=== PATIENT | female | born 1985 | race American Indian/Alaskan Native ===

== ENCOUNTER 2017-01-12 11:43 | Emergency (ER) | payer MEDICAID ==
[2017-01-12 12:03] VITALS: BP 114/56
[2017-01-12 12:51] LABS: Basophils % (Auto) 0.5 % (0.0-1.8); Eosinophils % (Auto) 0.6 % (0.0-4.3); Hematocrit 31.3 % (30.3-42.9); Hemoglobin 9.5 gm/dl (10.1-14.3); Mean Corpuscular HGB Conc 30 % (30-34); Mean Corpuscular Volume 73 fl (79-97); Platelet Count 254 K/mm3 (140-440); Red Blood Count 4.29 M/mm3 (3.65-5.03); Red Cell Distribution Width 16.5 % (13.2-15.2); White Blood Count 4.4 K/mm3 (4.5-11.0)
[2017-01-12 12:54] LABS: Mean Corpuscular Hemoglobin 22 pg (28-32)
[2017-01-12 13:02] LABS: Alanine Aminotransferase 8 units/L (7-56); Albumin 4.1 g/dL (3.9-5); Albumin/Globulin Ratio 1.2 %; Alkaline Phosphatase 51 units/L (35-129); Anion Gap 16 mmol/L; BUN/Creatinine Ratio 14; Blood Urea Nitrogen 7 mg/dL (7-17); Calcium 9.1 mg/dL (8.4-10.2); Carbon Dioxide 24 mmol/L (22-30); Chloride 102.9 mmol/L (98-107); Glucose 102 mg/dL (65-100); Lipase 22 units/L (13-60); Potassium 3.9 mmol/L (3.6-5.0); Sodium 139 mmol/L (137-145); Total Protein 7.5 g/dL (6.3-8.2)
[2017-01-12 13:14] LABS: Bilirubin,Urine NEG (Negative); Blood,Urine NEG (Negative); Ketones,Urine NEG (Negative); Leukocyte Esterase,Urine NEG (Negative); Mucus,Urine 1+ /HPF; Nitrite,Urine NEG (Negative); Urobilinogen,Urine < 2.0 mg/dL (<2.0)
== END 2017-01-12 14:55 | disposition left against medical advice (07) ==
LOC: ED 11:43
DX: R10.9 Unspecified abdominal pain (principal); Z53.21 Procedure and treatment not carried out due to patient leaving prior to being seen by health care provider
CPT/HCPCS: 36415; 80053; 81001; 81025; 83690; 85025

== ENCOUNTER 2018-09-16 11:44 | Emergency (ER) | payer MEDICAID ==
--- NOTE | 2018-09-16 12:07 | Event Note ---
ED Screening Note ED Screening Note: pt is c/o POWERS for three days has a hx of migraines, states she use to take propranol and amtriptyline states she stopped taking it a year ago because she went to snf +phophobia +nausea LNMP: 09/15/18 This initial assessment/diagnostic orders/clinical plan/treatment(s) is/are subject to change based on patients health status, clinical progression and re- assessment by fellow clinical providers in the ED. Further treatment and workup at subsequent clinical providers discretion. Patient/guardian urged not to elope from the ED as their condition may be serious if not clinically assessed and managed.
[2018-09-16] MEDS ORDERED: TORADOL IM ONE (13:22)
--- NOTE | 2018-09-16 13:53 | Emergency Department Report ---
ED Headache HPI - General Chief Complaint: Headache Stated Complaint: CHEST PAIN/MIGRAINE Time Seen by Provider: 09/16/18 12:05 Source: patient - History of Present Illness Timing/Duration: 1 week Quality: moderate Head Injury Location: global Recent Head Trauma: frequent headaches Modifying Factors: improves with: other (she has a history of taking several medications which usually does make her sleepy. Patient is been off of these medications for some time secondary to not having a primary care physician.) Associated Symptoms: other (light sensitivity). denies: confusion, fatigue, facial pain, fever/chills, loss of consciousness, nausea/vomiting, nasal congestion, nasal drainage, numbness in legs/feet, seizures, sinus infection, stiff neck Allergies/Adverse Reactions: Allergies No Known Allergies Allergy (Unverified 01/12/17 12:03) Home Medications: Ambulatory Orders Butalb/Acetamin/Caff 50-325-40 [Fioricet 50-325-40] 1 tab PO Q8HR PRN #10 tablet 09/16/18 Ketorolac [Toradol] 10 mg PO Q6H PRN #12 tablet 09/16/18 ED Review of Systems ROS: Stated complaint: CHEST PAIN/MIGRAINE Other details as noted in HPI Comment: All other systems reviewed and negative ED Past Medical Hx - Past Medical History Previous Medical History?: Yes Hx Headaches / Migraines: Yes - Surgical History Past Surgical History?: Yes Additional Surgical History: ,tubal - Social History Smoking Status: Never Smoker Substance Use Type: None - Medications Home Medications: Home Medications Medication Instructions Recorded Confirmed Last Taken Type Butalb/Acetamin/Caff 50-325-40 1 tab PO Q8HR PRN #10 tablet 09/16/18 Unknown Rx [Fioricet 50-325-40] Ketorolac [Toradol] 10 mg PO Q6H PRN #12 tablet 09/16/18 Unknown Rx ED Physical Exam - General Limitations: No Limitations General appearance: alert, in no apparent distress - Head Head exam: Present: atraumatic, normocephalic - Eye Eye exam: Present: normal appearance, PERRL, EOMI - ENT ENT exam: Present: mucous membranes moist - Neck Neck exam: Present: normal inspection - Respiratory Respiratory exam: Present: normal lung sounds bilaterally. Absent: respiratory distress - Cardiovascular Cardiovascular Exam: Present: regular rate, normal rhythm. Absent: systolic murmur, diastolic murmur, rubs, gallop - GI/Abdominal GI/Abdominal exam: Present: soft, normal bowel sounds - Extremities Exam Extremities exam: Present: normal inspection - Back Exam Back exam: Present: normal inspection - Neurological Exam Neurological exam: Present: alert, oriented X3 - Psychiatric Psychiatric exam: Present: normal affect, normal mood - Skin Skin exam: Present: warm, dry, intact, normal color. Absent: rash ED Course Vital Signs 09/16/18 12:05 Temperature 97.9 F Pulse Rate 71 Respiratory 16 Rate Blood Pressure 140/85 [Left] O2 Sat by Pulse 100 Oximetry ED Medical Decision Making - Medical Decision Making Patient given a shot of Toradol for pain control the patient be discharged home. Critical care attestation.: If time is entered above; I have spent that time in minutes in the direct care of this critically ill patient, excluding procedure time. ED Disposition Clinical Impression: Migraine Qualifiers: Migraine type: unspecified Status migrainosus presence: without status migrainosus Intractability: not intractable Qualified Code(s): G43.909 - Migraine, unspecified, not intractable, without status migrainosus Disposition: DC-01 TO HOME OR SELFCARE Is pt being admited?: No Does the pt Need Aspirin: No Condition: Stable Instructions: Migraine Headache (ED) Referrals: KATI SHEN MD [Primary Care Provider] - 3-5 Days Time of Disposition: 13:53
[2018-09-16 14:20] VITALS: BP 122/70
== END 2018-09-16 14:10 | disposition home or self-care (01) ==
LOC: ED 11:44
DX: G43.909 Migraine, unspecified, not intractable, without status migrainosus (principal)
CPT/HCPCS: 96372; 99282; J1885

== ENCOUNTER 2018-11-15 15:24 | Emergency (ER) | payer MEDICAID ==
[2018-11-15 15:56] VITALS: BP 117/52
--- NOTE | 2018-11-15 16:26 | Event Note ---
ED Screening Note Date of service: 11/15/18 Time: 16:20 ED Screening Note: 33 y/o female comes in for headache times 1.5 weeks and 3 days of hand and feet swelling. History of migraines This initial assessment/diagnostic orders/clinical plan/treatment(s) is/are subject to change based on patients health status, clinical progression and re- assessment by fellow clinical providers in the ED. Further treatment and workup at subsequent clinical providers discretion. Patient/guardian urged not to elope from the ED as their condition may be serious if not clinically assessed and managed. Initial orders include:
[2018-11-15] MEDS ORDERED: TORADOL IV ONE (17:07)
[2018-11-15] MEDS ORDERED: NACL 0.9% 1000 ML 1,000 ML IV ONE (17:07)
--- NOTE | 2018-11-15 17:07 | Emergency Department Report ---
HPI - General Chief Complaint: Headache Time Seen by Provider: 11/15/18 16:09 ED Past Medical Hx - Past Medical History Hx Headaches / Migraines: Yes - Surgical History Past Surgical History?: Yes Additional Surgical History: ,tubal - Family History Family history: no significant - Social History Smoking Status: Never Smoker Substance Use Type: None - Medications Home Medications: Home Medications Medication Instructions Recorded Confirmed Last Taken Type Butalb/Acetamin/Caff 50-325-40 1 tab PO Q8HR PRN #10 tablet 09/16/18 Unknown Rx [Fioricet 50-325-40] Ketorolac [Toradol] 10 mg PO Q6H PRN #12 tablet 09/16/18 Unknown Rx ED Review of Systems ROS: Stated complaint: BI HAND/FEET SWELLING/HEADACHE Other details as noted in HPI Comment: All other systems reviewed and negative Physical Exam - Physical Exam Vital Signs: Vital Signs 11/15/18 11/15/18 15:54 17:01 Temperature 98.3 F Pulse Rate 83 Respiratory 18 16 Rate Blood Pressure 117/52 O2 Sat by Pulse 99 Oximetry Physical Exam: ALERT AND ORIENTED NO FOCAL DEFICIT AMBULATORY NO VOMITING SEES HER NEURO MD IN ONE WEEK S1S2 LUNGS CTA ABD SNT ED Course Vital Signs 11/15/18 11/15/18 15:54 17:01 Temperature 98.3 F Pulse Rate 83 Respiratory 18 16 Rate Blood Pressure 117/52 O2 Sat by Pulse 99 Oximetry ED Medical Decision Making - Medical Decision Making PT HAS HX OF MIGRAIENE THIS IS HER USUAL HEADACHE SHE JUST CAN NOT BREAK IT WITH HER MEDS NO HEAD TRAUMA POS NAUSEA NEURO INTACT VSS HAS APPNT NEXT WED WITH HER MD LO/TORADOL/ZOFRAN/FIORICET IN ER DC HOME WITH NEURO FOLLOW UP Vital Signs 11/15/18 11/15/18 15:54 17:01 Temperature 98.3 F Pulse Rate 83 Respiratory 18 16 Rate Blood Pressure 117/52 O2 Sat by Pulse 99 Oximetry - Differential Diagnosis A/C MIGRAINE Critical care attestation.: If time is entered above; I have spent that time in minutes in the direct care of this critically ill patient, excluding procedure time. ED Disposition Clinical Impression: Migraine Disposition: DC-01 TO HOME OR SELFCARE Is pt being admited?: No Does the pt Need Aspirin: No Condition: Stable Instructions: Migraine Headache (ED) Additional Instructions: HYDRATE WELL MEDS PER YOUR ROUTINE FOLLOW UP WITH YOUR MD LEATHA Referrals: RONDA HARRELL MD [Referring] - 3-5 Days Time of Disposition: 17:17
[2018-11-15] MEDS ORDERED: ZOFRAN IV ONE (17:08)
[2018-11-15] MEDS ORDERED: FIORICET PO ONE (17:21)
== END 2018-11-15 18:54 | disposition home or self-care (01) ==
LOC: ED 15:24
DX: G43.909 Migraine, unspecified, not intractable, without status migrainosus (principal); Z79.899 Other long term (current) drug therapy
CPT/HCPCS: 96374; 96375; 99282; J1885; J2405; J7030

== ENCOUNTER 2020-12-12 20:25 | Observation (INO) | payer MEDICAID, OTHER ==
[2020-12-12 22:19] LABS: Basophils % (Auto) 0.3 % (0.0-1.8); Eosinophils # (Auto) 0.1 K/mm3 (0.0-0.4); Eosinophils % (Auto) 1.1 % (0.0-4.3); Lymphocytes # (Auto) 2.2 K/mm3 (1.2-5.4); Lymphocytes % (Auto) 44.8 % (13.4-35.0); Mean Corpuscular HGB Conc 28 % (30-34); Monocytes # (Auto) 0.3 K/mm3 (0.0-0.8); Monocytes % (Auto) 5.7 % (0.0-7.3); Platelet Count 229 K/mm3 (140-440); Red Blood Count 3.32 M/mm3 (3.65-5.03); Red Cell Distribution Width 17.9 % (13.2-15.2)
[2020-12-12 22:22] LABS: Hematocrit 21.1 % (30.3-42.9); Mean Corpuscular Volume 64 fl (79-97)
[2020-12-12 22:24] LABS: BUN/Creatinine Ratio 12; Blood Urea Nitrogen 7 mg/dL (7-17); Calcium 9.3 mg/dL (8.4-10.2); Hemolysis Index 1
[2020-12-12 22:25] LABS: Hemoglobin 5.9 gm/dl (10.1-14.3)
[2020-12-12] MEDS ORDERED: SODIUM CHLORIDE 0.9% 500 ML 500 ML IV ONE (23:18)
--- NOTE | 2020-12-12 23:22 | Emergency Department Report ---
ED Recheck HPI - General Chief Complaint: Recheck/Abnormal Lab/Rx Stated Complaint: LOW HEMOGLOBIN/WEAKNESS/HEADACHE/CP/ Time Seen by Provider: 12/12/20 23:01 Source: patient Mode of arrival: Ambulatory Limitations: No Limitations - History of Present Illness Initial Comments: Patient is a 35-year-old female who presents emergency room with complaints of lightheadedness, weakness and dyspnea on exertion. Patient states her symptoms been well for 2 weeks. Patient states her symptoms are worsening. Patient denies chest pain. Patient states that because of the symptoms she went to her primary care yesterday and had some blood drawn. Patient states that her primary care called her this evening told to come to the hospital because her H&H was low. Patient states hemoglobin was 5.7. Patient states she had a transfusion in the past. Patient denies fall. Patient denied patient. Patient denies headache. Patient denies recent travel. Patient denies recent international travel. Patient denies exposure to the novel coronavirus. Patient denies sick contacts. Patient denies fever and chills. Patient denies cough. Patient denies diarr hea. Patient denies coming in contact with anybody with symptoms of the novel coronavirus. Complaint: abnormal lab -: Sudden Returns Today for: CBOAL Context: called for abnorm lab res Associated Symptoms: shortness of breath, other - Related Data Previous Rx's Medication Instructions Recorded Last Taken Type Butalb/Acetamin/Caff 50-325-40 1 tab PO Q8HR PRN #10 tablet 09/16/18 Unknown Rx [Fioricet 50-325-40] Ketorolac [Toradol] 10 mg PO Q6H PRN #12 tablet 09/16/18 Unknown Rx Cyclobenzaprine [Flexeril] 10 mg PO TID PRN #30 tablet 12/31/18 Unknown Rx Menthol/Camphor [[place] 1 applicatio TP QID PRN #1 tube 12/31/18 Unknown Rx Ointment] traMADoL [Ultram] 50 mg PO Q6HR PRN #12 tablet 12/31/18 Unknown Rx Allergies Allergy/AdvReac Type Severity Reaction Status Date / Time No Known Allergies Allergy Verified 12/31/18 18:04 ED Review of Systems ROS: Stated complaint: LOW HEMOGLOBIN/WEAKNESS/HEADACHE/CP/ Other details as noted in HPI Constitutional: weakness. denies: chills, fever Eyes: denies: eye pain, eye discharge, vision change ENT: denies: ear pain, throat pain Respiratory: SOB with exertion. denies: cough, wheezing Cardiovascular: dyspnea on exertion. denies: chest pain, palpitations Endocrine: no symptoms reported Gastrointestinal: denies: abdominal pain, nausea, diarrhea Genitourinary: denies: urgency, dysuria, discharge Musculoskeletal: denies: back pain, joint swelling, arthralgia Skin: denies: rash, lesions Neurological: as per HPI, weakness. denies: headache, paresthesias Psychiatric: denies: anxiety, depression Hematological/Lymphatic: denies: easy bleeding, easy bruising ED Past Medical Hx - Past Medical History Previous Medical History?: Yes Hx Headaches / Migraines: Yes Additional medical history: ANEMIA. BLOOD TRANSFUSION - Surgical History Past Surgical History?: Yes Additional Surgical History: ,tubal - Family History Family history: no significant - Social History Smoking Status: Never Smoker Substance Use Type: None - Medications Home Medications: Home Medications Medication Instructions Recorded Confirmed Last Taken Type Butalb/Acetamin/Caff 50-325-40 1 tab PO Q8HR PRN #10 tablet 09/16/18 Unknown Rx [Fioricet 50-325-40] Ketorolac [Toradol] 10 mg PO Q6H PRN #12 tablet 09/16/18 Unknown Rx Cyclobenzaprine [Flexeril] 10 mg PO TID PRN #30 tablet 12/31/18 Unknown Rx Menthol/Camphor [[place] 1 applicatio TP QID PRN #1 tube 12/31/18 Unknown Rx Ointment] traMADoL [Ultram] 50 mg PO Q6HR PRN #12 tablet 12/31/18 Unknown Rx ED Physical Exam - General Limitations: No Limitations General appearance: alert, in no apparent distress - Head Head exam: Present: atraumatic, normocephalic - Eye Eye exam: Present: normal appearance, PERRL, other (Scleral pallor noted.) Pupils: Present: normal accommodation - ENT ENT exam: Present: mucous membranes moist - Neck Neck exam: Present: normal inspection - Respiratory Respiratory exam: Present: normal lung sounds bilaterally. Absent: respiratory distress, wheezes, rales - Cardiovascular Cardiovascular Exam: Present: regular rate, normal rhythm. Absent: systolic murmur, diastolic murmur, rubs, gallop - GI/Abdominal GI/Abdominal exam: Present: soft, normal bowel sounds - Extremities Exam Extremities exam: Present: normal inspection - Back Exam Back exam: Present: normal inspection - Neurological Exam Neurological exam: Present: alert, oriented X3 - Psychiatric Psychiatric exam: Present: normal affect, normal mood - Skin Skin exam: Present: warm, dry, intact, pallor. Absent: rash ED Course Vital Signs 12/12/20 21:26 Temperature 98.4 F Pulse Rate 94 H Respiratory 20 Rate Blood Pressure 131/82 O2 Sat by Pulse 100 Oximetry - Reevaluation(s) Reevaluation #1: I discussed all results with patient. I discussed plan of care with patient. Patient agrees with plan of care and admission. Patient to be admitted to the hospitalist service. 12/12/20 23:32 - Consultations Consultation #1: Hospitalist consulted for admission. Hospitalist to admit patient. 12/12/20 23:29 ED Recheck MDM - Core Measures AMI Core Measures Followed: Yes - Differential Diagnosis Anemia, shortness of breath, HERNANDEZ, weakness, lightheadedness - Medical Decision Making Patient is a 35-year-old female who presents emergency room with complaints of headedness, dyspnea on exertion and weakness. Patient states that she went to her primary care yesterday and had some blood showed that she was anemic with a hemoglobin of 5.7. Patient states she has a history of anemia and she has been recently started on iron. Patient states that her symptoms been going on for 2 weeks. Patient had labs done which were essentially unremarkable except for severe anemia. Patient was typed and screened. Patient be transfused 1 unit in ER. Patient admitted to the hospital service for further evaluation and treatment. Critical care time documented due to the multiple reassessments, prolonged time at the bedside, interpretation of diagnostics and labs. Critical Care Time: Yes Critical care time in (mins) excluding proc time.: 35 Critical care attestation.: If time is entered above; I have spent that time in minutes in the direct care of this critically ill patient, excluding procedure time. Critical Care Time: 35 minutes ED Disposition Clinical Impression: HERNANDEZ (dyspnea on exertion), Lightheadedness, Weakness Anemia Qualifiers: Anemia type: unspecified type Qualified Code(s): D64.9 - Anemia, unspecified Disposition: 09 ADMITTED INPATIENT Is pt being admited?: Yes Does the pt Need Aspirin: No Condition: Critical Time of Disposition: 23:35
[2020-12-12] MEDS ORDERED: MORPHINE 4 MG/1 ML INJ IV PRN (23:41)
[2020-12-12] MEDS ORDERED: ONDANSETRON 4 MG/2 ML INJ IV PRN (23:41)
[2020-12-12] MEDS ORDERED: MORPHINE 2 MG/1 ML INJ IV PRN (23:41)
[2020-12-12] MEDS ORDERED: ACETAMINOPHEN 325 MG TAB PO PRN (23:41)
[2020-12-12] MEDS ORDERED: MAGNESIUM HYDROXIDE (MOM) ORAL LIQD UDC PO PRN (23:41)
--- NOTE | 2020-12-12 23:50 | History and Physical Report ---
History of Present Illness Date of examination: 12/12/20 Date of admission: 12/12/2020 Chief complaint: Shortness of Breath Weakness History of present illness: 35-year-old female with no significant past medical history Presents to the emergency room today complaining of generalized weakness and dyspnea on exertion. This has been ongoing for the past 2 weeks. Patient denies any cough, no fever or chills, no nausea vomiting, no abdominal pain, no diarrhea. Patient denies heavy menstruation, denies any hematemesis. She however indicates that she takes ibuprofen occasionally for headache and she saw streaks of blood on her stool few days ago. She had gone to see her primary care physician few days ago and had some labs done. She was later called yesterday to report to the emergency room because of her low blood count. Patient states that she has had history of anemia in the past and has had blood transfusion in the past. She has not had any major work-up for the anemia. Work-up in the emergency room today, hemoglobin was 5.9 and hematocrit was 21.1. Patient has been scheduled for blood transfusion. Past History Past Medical History: anemia, migraines Past Surgical History: , Other (Tubal ligation) Social history: denies: no significant social history Family history: denies: no significant family history Medications and Allergies Allergies Allergy/AdvReac Type Severity Reaction Status Date / Time No Known Allergies Allergy Verified 12/31/18 18:04 Home Medications Medication Instructions Recorded Confirmed Last Taken Type Butalb/Acetamin/Caff 50-325-40 1 tab PO Q8HR PRN #10 tablet 09/16/18 Unknown Rx [Fioricet 50-325-40] Cyclobenzaprine [Flexeril 10 MG 10 mg PO TID PRN #30 tablet 12/31/18 Unknown Rx TAB] Menthol/Camphor [[place] 1 applicatio TP QID PRN #1 tube 12/31/18 Unknown Rx Ointment] traMADoL [Ultram 50 MG tab] 50 mg PO Q6HR PRN #12 tablet 12/31/18 Unknown Rx Ascorbic Acid [Vitamin C] 1,000 mg PO DAILY #30 tablet 12/13/20 Unknown Rx Ferrous Sulfate [Feosol 325 MG tab] 325 mg PO BID #60 tablet 12/13/20 Unknown Rx Sennosides/Docusate Sodium [[place] 1 each PO DAILY #30 tablet 12/13/20 Unknown Rx Plus Tablet] Review of Systems Constitutional: weakness, no fever, no chills Ears, nose, mouth and throat: no nasal congestion, no sore throat Cardiovascular: no chest pain, no palpitations Respiratory: shortness of breath, no cough Gastrointestinal: hematochezia, no abdominal pain, no nausea, no vomiting, no diarrhea Genitourinary Female: no pelvic pain, no flank pain, no dysuria, no hematuria Menstruation: no period heavy Musculoskeletal: no neck pain, no low back pain Integumentary: no rash, no pruritis Neurological: no headaches, no confusion Psychiatric: no anxiety, no depression Endocrine: no polyphagia, no polydipsia, no polyuria, no nocturia Exam - Constitutional Vitals: Temp Pulse Resp BP Pulse Ox 98.4 F 94 H 20 131/82 100 12/12/20 21:26 12/12/20 21:26 12/12/20 21:26 12/12/20 21:26 12/12/20 21:26 General appearance: Present: no acute distress, well-nourished, other (Moderate Pallor) - EENT Eyes: Present: PERRL, EOM intact. Absent: scleral icterus ENT: hearing intact, clear oral mucosa, dentition normal - Neck Neck: Present: supple, normal ROM - Respiratory Respiratory effort: normal Respiratory: bilateral: CTA - Cardiovascular Rhythm: regular Heart Sounds: Present: S1 & S2. Absent: gallop, systolic murmur, diastolic murmur, rub, click - Extremities Extremities: no ischemia, pulses intact, pulses symmetrical, No edema, normal temperature, normal color, Full ROM Peripheral Pulses: within normal limits - Abdominal General gastrointestinal: Present: soft, non-tender, non-distended, normal bowel sounds. Absent: mass - Integumentary Integumentary: Present: clear, warm, dry - Musculoskeletal Musculoskeletal: strength equal bilaterally - Psychiatric Psychiatric: appropriate mood/affect, intact judgment & insight, memory intact, cooperative - Neurologic Neurologic: CNII-XII intact, no focal deficits, moves all extremities Results - Labs CBC & Chem 7: 12/13/20 14:03 12/13/20 04:02 Labs: Abnormal lab results 12/12/20 12/12/20 12/12/20 Range/Units 21:53 21:53 21:53 RBC 3.32 L (3.65-5.03) M/mm3 Hgb 5.9 L* (10.1-14.3) gm/dl Hct 21.1 L (30.3-42.9) % MCV 64 L (79-97) fl MCH 18 L (28-32) pg MCHC 28 L (30-34) % RDW 17.9 H (13.2-15.2) % Lymph % (Auto) 44.8 H (13.4-35.0) % Sodium 136 L (137-145) mmol/L Glucose 106 H (65-100) mg/dL Crossmatch See Detail Assessment and Plan - Patient Problems (1) Anemia Status: Acute Qualifiers: Anemia type: unspecified type Qualified Code(s): D64.9 - Anemia, unspecified Plan to address problem: Etiology is unclear. Probably secondary to GI loss. Patient has been scheduled for blood transfusion. We will place consult to gastroenterology for evaluation. We will also check stool Hemoccult. (2) HERNANDEZ (dyspnea on exertion) Status: Acute Plan to address problem: Possibly secondary to symptomatic anemia. Patient currently having blood transfusion. (3) DVT prophylaxis Status: Acute Plan to address problem: We will place patient on sequential compression device. (4) Full code status Status: Acute Plan to address problem: Patient is full code.
[2020-12-13 04:48] LABS: Hematocrit 23.2 % (30.3-42.9); Hemoglobin 6.8 gm/dl (10.1-14.3); Mean Corpuscular HGB Conc 29 % (30-34); Platelet Count 199 K/mm3 (140-440); Red Blood Count 3.46 M/mm3 (3.65-5.03)
[2020-12-13 04:50] LABS: Mean Corpuscular Volume 67 fl (79-97); Red Cell Distribution Width 20.3 % (13.2-15.2)
[2020-12-13 04:55] LABS: BUN/Creatinine Ratio 12; Blood Urea Nitrogen 7 mg/dL (7-17); Calcium 8.5 mg/dL (8.4-10.2); Hemolysis Index 2
[2020-12-13 04:56] LABS: INR 0.92 (0.87-1.13)
[2020-12-13] MEDS ORDERED: SODIUM CHLORIDE 0.9% 500 ML 500 ML IV ONE (05:18)
[2020-12-13 05:54] LABS: Total Cells Counted 100
[2020-12-13 05:55] LABS: Hypochromasia 2+; Ovalocytes 2+
[2020-12-13 05:56] LABS: Anisocytosis 1+; Burr Cells 1+; Poikilocytosis 1+
[2020-12-13 05:57] LABS: Platelet Estimate Consistent w Auto
[2020-12-13] MEDS ORDERED: PANTOPRAZOLE 40 MG INJ IV SCH (10:00)
--- NOTE | 2020-12-13 11:59 | Discharge Summary ---
Providers - Providers Date of Admission: 12/12/20 23:19 Attending physician: KAYLAH COOMBS MD 12/13/20 05:17 Consult to Physician [CONS] Routine Comment: Consulting Provider: DALLIN CORTEZ Physician Instructions: Reason For Exam: anemia, blood stool Hospitalization Reason for admission: shortness of breath Condition: Stable Hospital course: 35-year-old female with no significant past medical history Presents to the emergency room today complaining of generalized weakness and dyspnea on exertion. This has been ongoing for the past 2 weeks. Patient denies any cough, no fever or chills, no nausea vomiting, no abdominal pain, no diarrhea. Patient denies heavy menstruation, denies any hematemesis. She however indicates that she takes ibuprofen occasionally for headache as she is also streaks of blood on her stool few days ago. She had gone to see her primary care physician few days ago and had some labs done. She was later called yesterday to report to the emergency room because of her low blood count. Patient states that she has had history of anemia in the past and has had blood transfusion in the past. She has not had any major work-up for the anemia. Work-up in the emergency room today, hemoglobin was 5.9 and hematocrit was 21.1. Patient has been scheduled for blood transfusion. Per GI evaluation 1. Iron deficiency anemiaetiology unclear. This is longstanding. This is either due to loss of iron from blood loss from the GI tract or gynecological losses. Alternatively, she may be mall absorbing and have low affinity iron t ransporter proteins precluding her from being adequately able to absorb her iron. -After stabilization with transfusion, may discharge to home from GI standpoint. -Would discharge on twice a day iron along with vitamin C. -As an outpatient, would do GI work-up with stool for occult blood as well as colonoscopy and endoscopy. -Would also have patient check with [facility] to ensure no etiology for iron de ficiency anemia there. -Then, monitor blood count and iron levels and if fails to improve, patient may need to be put on a regimen of regular IV iron infusions. 2. Constipationconsistent with colonic inertia based on history. -Would discharge patient on daily MiraLAX or even twice a day. -Patient may take milk of magnesia as needed for now, like she has been at home. -If MiraLAX does not work, patient may benefit from Linzess or other promotility agent -Further evaluation as outpatient. (1) Anemia- Iron Deficiency Current Visit: Yes Status: Acute Qualifiers: Anemia type: unspecified type Qualified Code(s): D64.9 - Anemia, unspecified Plan to address problem: Etiology is unclear. Probably secondary to GI loss. Patient has been scheduled for blood transfusion. We will place consult to gastroenterology for evaluation. We will also check stool Hemoccult. (2) HERNANDEZ (dyspnea on exertion) Current Visit: Yes Status: Acute Plan to address problem: Possibly secondary to symptomatic anemia. Patient currently having blood transfusion. (3) DVT prophylaxis Current Visit: Yes Status: Acute Plan to address problem: We will place patient on sequential compression device. (4) Full code status Current Visit: Yes Status: Acute Plan to address problem: Patient is full code. Disposition: 01 HOME / SELF CARE / HOMELESS Final Discharge Diagnosis (Prints w/discharge instructions): Iron deficiency anemia with Exertional dyspnea Time spent for discharge: 35 mins Core Measure Documentation - Palliative Care Palliative Care/ Comfort Measures: Not Applicable - Core Measures Any of the following diagnoses?: none Exam - Physical Exam Narrative exam: VITAL SIGNS: Reviewed. GENERAL: The patient appears normally developed, Vital signs as documented. HEAD: No signs of head trauma. EYES: Pupils are equal. Extraocular motions intact. EARS: Hearing grossly intact. MOUTH: Oropharynx is normal. NECK: No adenopathy, no JVD. CHEST: Chest with clear breath sounds bilaterally. No wheezes, rales, or rhonchi. CARDIAC: Regular rate and rhythm. S1 and S2, without murmurs, gallops, or rubs. VASCULAR: No Edema. Peripheral pulses normal and equal in all extremities. ABDOMEN: Soft, non tender and non distended. No rebound or guarding, and no masses palpated. Bowel Sounds normal. MUSCULOSKELETAL: Good range of motion of all major joints. Extremities without clubbing, cyanosis or edema. NEUROLOGIC EXAM: Alert and oriented x 3 No focal sensory or strength deficits. Speech normal. Follows commands. PSYCHIATRIC: Mood normal. SKIN: detail exam as documented in skin assessment - Constitutional Vitals: Temp Pulse Resp BP Pulse Ox 98.2 F 78 16 134/68 100 12/13/20 07:50 12/13/20 07:50 12/13/20 07:50 12/13/20 07:50 12/13/20 07:50 Plan Activity: advance as tolerated, fall precautions Diet: low fat Special Instructions: record daily weights, record daily BP diary Plan of Treatment: Follow with your [facility] OF SOCIOLOGY [facility] avoid NSAIDS Follow up with: MARCI HATFIELD [Other] - 7 Days ALISON BEAN MD [Staff Physician] - 7 Days MARTELL GIRON MD [Staff Physician] - 7 Days DEEJAY DAVID MD [Staff Physician] - 7 Days RYLEE DAVALOS MD [Staff Physician] - 7 Days Prescriptions: Ferrous Sulfate [Feosol 325 MG tab] 325 mg PO BID #60 tablet Sennosides/Docusate Sodium [Senna Plus Tablet] 1 each PO DAILY #30 tablet Ascorbic Acid [Vitamin C] 1,000 mg PO DAILY #30 tablet
--- NOTE | 2020-12-13 12:08 | Consultation ---
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 She was seen by her primary care physician and found to have a hemoglobin of 5.7 and advised to go to the emergency room for evaluation. She has had a transfusion in the emergency room. Currently, she feels well. Of note, patient states that she has a history of iron deficiency anemia since 2005. Her sister also has the same thing. Iron deficiency has been documented. Patient has been transfused once several years ago. She states that she has not been given any etiology for her iron deficiency anemia. Her bowel movements occur once a week to every 2 weeks and this is a lifelong problem. She does have to strain at times. However, she has had no hematochezia or melena. She denies any abdominal pain or nausea. There is been no hematemesis. There is no weight loss. She has regular menstrual cycles that she states are normal and not necessarily heavy. She has not undergone any endoscopic evaluation for her anemia, and any further work-up is unknown. She denies any family history of sickle cell disease or known hemoglobinopathy. Medications reviewed. Past History Past Medical History: anemia (iron deficiency, since 2005), migraines Past Surgical History: , Other (Tubal ligation) Social history: denies: no significant social history, smoking, alcohol abuse Family history: denies: no significant family history Medications and Allergies Allergies Allergy/AdvReac Type Severity Reaction Status Date / Time No Known Allergies Allergy Verified 12/31/18 18:04 Home Medications Medication Instructions Recorded Confirmed Last Taken Type Butalb/Acetamin/Caff 50-325-40 1 tab PO Q8HR PRN #10 tablet 09/16/18 Unknown Rx [Fioricet 50-325-40] Cyclobenzaprine [Flexeril 10 MG 10 mg PO TID PRN #30 tablet 12/31/18 Unknown Rx TAB] Menthol/Camphor [[place] 1 applicatio TP QID PRN #1 tube 12/31/18 Unknown Rx Ointment] traMADoL [Ultram 50 MG tab] 50 mg PO Q6HR PRN #12 tablet 12/31/18 Unknown Rx Ferrous Sulfate [Feosol 325 MG tab] 325 mg PO BID #60 tablet 12/13/20 Unknown Rx Sennosides/Docusate Sodium [Senna 1 each PO DAILY #30 tablet 12/13/20 Unknown Rx Plus Tablet] Active Meds: Active Medications Acetaminophen (Acetaminophen 325 Mg Tab) 650 mg PO Q4H PRN PRN Reason: Pain MILD(1-3)/Fever >100.5/POWERS Magnesium Hydroxide (Magnesium Hydroxide (Mom) Oral Liqd Udc) 30 ml PO Q4H PRN PRN Reason: Constipation Morphine Sulfate (Morphine 2 Mg/1 Ml Inj) 2 mg IV Q4H PRN PRN Reason: Pain, Moderate (4-6) Morphine Sulfate (Morphine 4 Mg/1 Ml Inj) 4 mg IV Q4H PRN PRN Reason: Pain , Severe (7-10) Ondansetron HCl (Ondansetron 4 Mg/2 Ml Inj) 4 mg IV Q8H PRN PRN Reason: Nausea And Vomiting Pantoprazole Sodium (Pantoprazole 40 Mg Inj) 40 mg IV BID [facility] Last Admin: 12/13/20 10:19 Dose: 40 mg Documented by: Sodium Chloride (Sodium Chloride 0.9% 10 Ml Flush Syringe) 10 ml IV BID [facility] Last Admin: 12/13/20 10:19 Dose: 10 ml Documented by: Sodium Chloride (Sodium Chloride 0.9% 10 Ml Flush Syringe) 10 ml IV PRN PRN PRN Reason: LINE FLUSH Review of Systems All systems: negative (as per HPI) Exam - Constitutional Vitals: Temp Pulse Resp BP Pulse Ox 98.2 F 78 16 134/68 100 12/13/20 07:50 12/13/20 07:50 12/13/20 07:50 12/13/20 07:50 12/13/20 07:50 General appearance: Present: no acute distress - EENT Eyes: Present: PERRL, EOM intact ENT: hearing intact - Respiratory Respiratory effort: normal Respiratory: bilateral: CTA - Cardiovascular Rhythm: regular Heart Sounds: Present: S1 & S2 - Extremities Extremities: No edema - Abdominal General gastrointestinal: Present: soft, non-tender - Rectal Rectal Exam: deferred Results - Labs CBC & Chem 7: 12/13/20 04:02 12/13/20 04:02 Labs: Abnormal lab results 12/12/20 12/12/20 12/12/20 Range/Units 21:53 21:53 21:53 RBC 3.32 L (3.65-5.03) M/mm3 Hgb 5.9 L* (10.1-14.3) gm/dl Hct 21.1 L (30.3-42.9) % MCV 64 L (79-97) fl MCH 18 L (28-32) pg MCHC 28 L (30-34) % RDW 17.9 H (13.2-15.2) % Lymph % (Auto) 44.8 H (13.4-35.0) % Lymphocytes % (Manual) (13.4-35.0) % Sodium 136 L (137-145) mmol/L Glucose 106 H (65-100) mg/dL Crossmatch See Detail 12/13/20 12/13/20 Range/Units 04:02 04:02 RBC 3.46 L (3.65-5.03) M/mm3 Hgb 6.8 L (10.1-14.3) gm/dl Hct 23.2 L (30.3-42.9) % MCV 67 L (79-97) fl MCH 20 L (28-32) pg MCHC 29 L (30-34) % RDW 20.3 H (13.2-15.2) % Lymph % (Auto) (13.4-35.0) % Lymphocytes % (Manual) 41.0 H (13.4-35.0) % Sodium (137-145) mmol/L Glucose 110 H (65-100) mg/dL Crossmatch Assessment and Plan 1. Iron deficiency anemiaetiology unclear. This is longstanding. This is either due to loss of iron from blood loss from the GI tract or gynecological losses. Alternatively, she may be mall absorbing and have low affinity iron transporter proteins precluding her from being adequately able to absorb her iron. -After stabilization with transfusion, may discharge to home from GI standpoint. -Would discharge on twice a day iron along with vitamin C. -As an outpatient, would do GI work-up with stool for occult blood as well as colonoscopy and endoscopy. -Would also have patient check with [facility] to ensure no etiology for iron deficiency anemia there. -Then, monitor blood count and iron levels and if fails to improve, patient may need to be put on a regimen of regular IV iron infusions. 2. Constipationconsistent with colonic inertia based on history. -Would discharge patient on daily MiraLAX or even twice a day. -Patient may take milk of magnesia as needed for now, like she has been at home. -If MiraLAX does not work, patient may benefit from Linzess or other promotility agent -Further evaluation as outpatient. No further GI recommendations. We will sign off. Thanks.
[2020-12-13 14:27] LABS: Hematocrit 29.1 % (30.3-42.9); Hemoglobin 8.7 gm/dl (10.1-14.3)
[2020-12-13 15:10] VITALS: BP 125/73
== END 2020-12-13 15:45 | disposition home or self-care (01) ==
LOC: ED 20:25 → 3A 23:19 → 4A 12-13 07:54
PROVIDERS: ADMIT Internal Medicine Geriatric Medicine; ATTEND Internal Medicine
DX: D50.9 Iron deficiency anemia, unspecified (principal); R06.00 Dyspnea, unspecified; G43.909 Migraine, unspecified, not intractable, without status migrainosus; K59.00 Constipation, unspecified; R42 Dizziness and giddiness; Z90.710 Acquired absence of both cervix and uterus; Z98.51 Tubal ligation status
CPT/HCPCS: 36415; 36430; 80048; 84703; 85014; 85018; 85025; 85379; 85610; 86850; 86900; 86901; 86920; 96361; 96374; 99291; C9113; G0378; J7040; P9016; 85007

== ENCOUNTER 2021-01-20 21:47 | Emergency (ER) | payer OTHER ==
[2021-01-20 22:47] VITALS: BP 121/77
[2021-01-20] MEDS ORDERED: METOCLOPRAMIDE 10 MG/2 ML INJ IV ONE (23:05)
[2021-01-20] MEDS ORDERED: LACTATED RINGERS 1,000 ML IV ONE (23:05)
[2021-01-20] MEDS ORDERED: HYDROmorphone 1 MG/1 ML INJ IV ONE (23:05)
--- NOTE | 2021-01-20 23:06 | Emergency Department Report ---
ED General Adult HPI - General Chief complaint: Abdominal Pain Stated complaint: NAUSEA, VOMITING PUI?: No Time Seen by Provider: 01/20/21 22:56 Source: patient, EMS ( EMS documentation not available at time of chart dict ation ), RN notes reviewed, old records reviewed Mode of arrival: Ambulatory Limitations: No Limitations - History of Present Illness Initial comments: The patient was evaluated in the emergency department for symptoms described in the history of present illness. He/she was evaluated in the context of the [facility] COVID-19 pandemic, which necessitated consideration that the patient might be at risk for infection with the virus that causes COVID-19. Institutional protocols and algorithms that pertain to the evaluation of patients at risk for COVID-19 are in a state of rapid change based on information released by regulatory bodies including the CDC and federal and state organizations. These policies and algorithms were followed during the patient's care in the emergency department. Please note that these policies, procedures and recommendations changed on a rapid basis. During the entire history and physical examination, I am chaperoned by Rose Cain The patient is a 35-year-old female. Her past medical history includes body mass index of 41.6, and chronic iron deficiency anemia, with constipation, suspected to be colonic inertia based off of prior history. The patient presents to the ER today with a complaint of nontraumatic left flank and left lower quadrant pain. It is present for 2 weeks. It is associate with nausea and vomiting. The patient denies headache, neck pain, chest pain. The patient does not consume marijuana. The patient states her pain increases with palpation, range of motion, and decreases with rest and hydromorphone. She denies vaginal discharge, pelvic pain, dysuria, and STI history. Her symptoms are much improved in the emergency room with hydromorphone, and antiemetics. -: Gradual, week(s) Location: abdomen (Left flank, and left lower quadrant) Radiation: other (Left flank to left lower quadrant) Severity scale (0 -10): 8 Quality: aching Consistency: intermittent Improves with: medication, rest Worsens with: movement - Related Data Previous Rx's Medication Instructions Recorded Last Taken Type Butalb/Acetamin/Caff 50-325-40 1 tab PO Q8HR PRN #10 tablet 09/16/18 Unknown Rx [Fioricet 50-325-40] Menthol/Camphor [[place] 1 applicatio TP QID PRN #1 tube 12/31/18 Unknown Rx Ointment] Ascorbic Acid [Vitamin C] 1,000 mg PO DAILY #30 tablet 12/13/20 Unknown Rx Acetaminophen [Non-Aspirin Extra 500 mg PO Q6HR PRN #30 tablet 01/21/21 Unknown Rx Strength] Ferrous Sulfate [Feosol 325 MG tab] 325 mg PO BID #60 tablet 01/21/21 Unknown Rx Ibuprofen [Motrin] 600 mg PO Q8H PRN #30 tablet 01/21/21 Unknown Rx Ondansetron [Zofran Odt] 4 mg PO Q8HR PRN #20 tab.rapdis 01/21/21 Unknown Rx Promethazine [Phenergan SUPPOS] 50 mg RI Q6H PRN #20 supp.rect 01/21/21 Unknown Rx Sennosides/Docusate Sodium [Senna 1 each PO DAILY #30 tablet 01/21/21 Unknown Rx Plus Tablet] Allergies Allergy/AdvReac Type Severity Reaction Status Date / Time No Known Allergies Allergy Verified 12/31/18 18:04 ED Review of Systems ROS: Stated complaint: NAUSEA, VOMITING Other details as noted in HPI Constitutional: denies: fever, malaise Eyes: denies: eye discharge ENT: denies: epistaxis Respiratory: denies: cough Cardiovascular: denies: chest pain Gastrointestinal: abdominal pain, nausea. denies: hematemesis, melena, hematochezia Genitourinary: denies: dysuria Musculoskeletal: back pain Neurological: weakness Psychiatric: anxiety Hematological/Lymphatic: denies: easy bleeding ED Past Medical Hx - Past Medical History Hx Headaches / Migraines: Yes Additional medical history: ANEMIA. BLOOD TRANSFUSION - Surgical History Additional Surgical History: ,tubal - Social History Smoking Status: Never Smoker Substance Use Type: None - Medications Home Medications: Home Medications Medication Instructions Recorded Confirmed Last Taken Type Butalb/Acetamin/Caff 50-325-40 1 tab PO Q8HR PRN #10 tablet 09/16/18 Unknown Rx [Fioricet 50-325-40] Menthol/Camphor [[place] 1 applicatio TP QID PRN #1 tube 12/31/18 Unknown Rx Ointment] Ascorbic Acid [Vitamin C] 1,000 mg PO DAILY #30 tablet 12/13/20 Unknown Rx Acetaminophen [Non-Aspirin Extra 500 mg PO Q6HR PRN #30 tablet 01/21/21 Unknown Rx Strength] Ferrous Sulfate [Feosol 325 MG tab] 325 mg PO BID #60 tablet 01/21/21 Unknown Rx Ibuprofen [Motrin] 600 mg PO Q8H PRN #30 tablet 01/21/21 Unknown Rx Ondansetron [Zofran Odt] 4 mg PO Q8HR PRN #20 tab.rapdis 01/21/21 Unknown Rx Promethazine [Phenergan SUPPOS] 50 mg RI Q6H PRN #20 supp.rect 01/21/21 Unknown Rx Sennosides/Docusate Sodium [Senna 1 each PO DAILY #30 tablet 01/21/21 Unknown Rx Plus Tablet] ED Physical Exam - General Limitations: No Limitations General appearance: alert, anxious, obese - Head Head exam: Present: atraumatic, normocephalic - Eye Eye exam: Present: normal appearance, EOMI. Absent: conjunctival injection, nystagmus - ENT ENT exam: Present: normal exam, normal orophraynx, mucous membranes moist, normal external ear exam - Neck Neck exam: Present: normal inspection, full ROM. Absent: tenderness, meningismus - Respiratory Respiratory exam: Present: normal lung sounds bilaterally. Absent: respiratory distress - Cardiovascular Cardiovascular Exam: Present: regular rate, normal rhythm, normal heart sounds. Absent: bradycardia, tachycardia, irregular rhythm, systolic murmur, diastolic murmur, rubs, gallop - GI/Abdominal GI/Abdominal exam: Present: soft, tenderness, other (There is left flank tenderness. There is left lower quadrant tenderness to deep palpation.). Absent: distended, guarding, rebound, rigid, pulsatile mass - External exam: Present: normal external exam. Absent: erythema, swelling, lesions, lacerations, ecchymosis, bleeding Speculum exam: Present: normal speculum exam. Absent: cervical discharge, vaginal bleeding, foreign body Bi-manual exam: Present: normal bi-manual exam, other (Chaperoned Mena Cain). Absent: cervical motion tendernes, adnexal tenderness, adnexal mass, uterine enlargement, uterine tenderness - Extremities Exam Extremities exam: Present: normal inspection, full ROM, other (2+ pulses noted in the bilateral upper and lower extremities. There is no palpable cord. negative Homans sign. Muscular compartments are soft. The pelvis is stable.). Absent: pedal edema, calf tenderness - Back Exam Back exam: Present: normal inspection, full ROM. Absent: tenderness, CVA tenderness (R), CVA tenderness (L), paraspinal tenderness, vertebral tenderness - Neurological Exam Neurological exam: Present: alert, oriented X3, normal gait, other (No facial d bharat. Tongue midline. Extraocular movements intact bilaterally. Facial sensation intact to light touch in V1, V2, V3 distribution bilaterally. 5 and a 5 strength in 4 extremities. Sensation intact to light touch in 4 extremities.). Absent: motor sensory deficit - Psychiatric Psychiatric exam: Present: normal affect, normal mood - Skin Skin exam: Present: warm, dry, intact, normal color. Absent: rash ED Course Vital Signs 01/20/21 22:01 Temperature 99 F Pulse Rate 81 Respiratory 18 Rate Blood Pressure 121/77 [Left] O2 Sat by Pulse 98 Oximetry - Reevaluation(s) Reevaluation #1: 01/21/21 00:33 Differential diagnosis, including but not limited to: Obstruction, volvulus, renal colic, cyclic vomiting syndrome, cannabinoid hyperemesis syndrome, urinary tract infection, pyelonephritis, ovarian cyst, constipation, functional nausea and vomiting Assessment and plan: 35-year-old female, with a benign and unremarkable gynecologic examination, no urinary symptoms, presenting with left lower quadrant pain, tenderness, nausea and vomiting. She felt improved after hydromorphone, and Reglan. Laboratory studies so far unremarkable. Renal colic/urinary tract infection less likely. CT scan abdomen pelvis obtained. Reassess after data points. 01/21/21 00:34 Anemia is chronic 01/21/21 01:19 Patient reexamined multiple times. On multiple repeat assessments, she is sitting comfortably on a chair, in no acute distress. CT scan abdomen pelvis negative for emergent surgical findings. Possible left-sided hydrosalpinx is reviewed and appreciated. She has no gynecologic tenderness on my exam. There is no discharge. I do not suspect STI. This may be a chronic hydrosalpinx. I discussed this with the patient. She articulated understanding. Her symptoms are significantly improved. No active vomiting. She follows up with outpatient back order clerk, Dr. Camarena. Discussed laboratory studies, CT scan findings and significance. Patient articulated understanding. She endorses readiness for discharge. Return precautions are reviewed. ED Medical Decision Making - Lab Data Result diagrams: 01/20/21 22:56 01/20/21 22:56 Vital Signs 01/20/21 22:01 Temperature 99 F Pulse Rate 81 Respiratory 18 Rate Blood Pressure 121/77 [Left] O2 Sat by Pulse 98 Oximetry Lab Results 01/20/21 01/20/21 01/20/21 Range/Units 22:56 22:56 22:56 WBC 6.0 (4.5-11.0) K/mm3 RBC 3.62 L (3.65-5.03) M/mm3 Hgb 8.2 L (10.1-14.3) gm/dl Hct 25.7 L (30.3-42.9) % MCV 71 L (79-97) fl MCH 23 L (28-32) pg MCHC 32 (30-34) % RDW 23.7 H (13.2-15.2) % Plt Count 374 (140-440) K/mm3 Lymph % (Auto) 35.3 H (13.4-35.0) % Preston % (Auto) 4.7 (0.0-7.3) % Eos % (Auto) 1.1 (0.0-4.3) % Baso % (Auto) 0.3 (0.0-1.8) % Lymph # (Auto) 2.1 (1.2-5.4) K/mm3 Preston # (Auto) 0.3 (0.0-0.8) K/mm3 Eos # (Auto) 0.1 (0.0-0.4) K/mm3 Baso # (Auto) 0.0 (0.0-0.1) K/mm3 Seg Neutrophils % 58.6 (40.0-70.0) % Seg Neutrophils # 3.5 (1.8-7.7) K/mm3 Sodium 138 (137-145) mmol/L Potassium 3.9 (3.6-5.0) mmol/L Chloride 103.1 (98-107) mmol/L Carbon Dioxide 25 (22-30) mmol/L Anion Gap 14 mmol/L BUN 8 (7-17) mg/dL Creatinine 0.6 (0.6-1.2) mg/dL Estimated GFR > 60 ml/min BUN/Creatinine Ratio 13 % Glucose 105 H (65-100) mg/dL Calcium 9.1 (8.4-10.2) mg/dL Total Bilirubin 0.20 (0.1-1.2) mg/dL AST 14 (5-40) units/L ALT 7 (7-56) units/L Alkaline Phosphatase 58 (35-129) units/L Total Protein 7.8 (6.3-8.2) g/dL Albumin 4.1 (3.9-5) g/dL Albumin/Globulin Ratio 1.1 % Lipase 23 (13-60) units/L HCG, Qual Negative (Negative) Urine Color (Yellow) Urine Turbidity (Clear) Urine pH (5.0-7.0) Ur Specific [place] (1.003-1.030) Urine Protein (Negative) mg/dL Urine Glucose (UA) (Negative) mg/dL Urine Ketones (Negative) mg/dL Urine Blood (Negative) Urine Nitrite (Negative) Urine Bilirubin (Negative) Urine Urobilinogen (<2.0) mg/dL Ur Leukocyte Esterase (Negative) Urine WBC (Auto) (0.0-6.0) /HPF Urine RBC (Auto) (0.0-6.0) /HPF U Epithel Cells (Auto) (0-13.0) /HPF Urine Mucus /HPF Urine Opiates Screen Urine Methadone Screen Ur Barbiturates Screen Ur Phencyclidine Scrn Ur Amphetamines Screen U Benzodiazepines Scrn Urine Cocaine Screen U Marijuana (THC) Screen Drugs of Abuse Note 01/20/21 01/20/21 Range/Units 23:20 23:20 WBC (4.5-11.0) K/mm3 RBC (3.65-5.03) M/mm3 Hgb (10.1-14.3) gm/dl Hct (30.3-42.9) % MCV (79-97) fl MCH (28-32) pg MCHC (30-34) % RDW (13.2-15.2) % Plt Count (140-440) K/mm3 Lymph % (Auto) (13.4-35.0) % Preston % (Auto) (0.0-7.3) % Eos % (Auto) (0.0-4.3) % Baso % (Auto) (0.0-1.8) % Lymph # (Auto) (1.2-5.4) K/mm3 Preston # (Auto) (0.0-0.8) K/mm3 Eos # (Auto) (0.0-0.4) K/mm3 Baso # (Auto) (0.0-0.1) K/mm3 Seg Neutrophils % (40.0-70.0) % Seg Neutrophils # (1.8-7.7) K/mm3 Sodium (137-145) mmol/L Potassium (3.6-5.0) mmol/L Chloride (98-107) mmol/L Carbon Dioxide (22-30) mmol/L Anion Gap mmol/L BUN (7-17) mg/dL Creatinine (0.6-1.2) mg/dL Estimated GFR ml/min BUN/Creatinine Ratio % Glucose (65-100) mg/dL Calcium (8.4-10.2) mg/dL Total Bilirubin (0.1-1.2) mg/dL AST (5-40) units/L ALT (7-56) units/L Alkaline Phosphatase (35-129) units/L Total Protein (6.3-8.2) g/dL Albumin (3.9-5) g/dL Albumin/Globulin Ratio % Lipase (13-60) units/L HCG, Qual (Negative) Urine Color Yellow (Yellow) Urine Turbidity Clear (Clear) Urine pH 8.0 H (5.0-7.0) Ur Specific [place] 1.020 (1.003-1.030) Urine Protein 30 mg/dl (Negative) mg/dL Urine Glucose (UA) Neg (Negative) mg/dL Urine Ketones Neg (Negative) mg/dL Urine Blood Neg (Negative) Urine Nitrite Neg (Negative) Urine Bilirubin Neg (Negative) Urine Urobilinogen < 2.0 (<2.0) mg/dL Ur Leukocyte Esterase Neg (Negative) Urine WBC (Auto) 1.0 (0.0-6.0) /HPF Urine RBC (Auto) 2.0 (0.0-6.0) /HPF U Epithel Cells (Auto) 3.0 (0-13.0) /HPF Urine Mucus Few /HPF Urine Opiates Screen Presumptive negative Urine Methadone Screen Presumptive negative Ur Barbiturates Screen Presumptive negative Ur Phencyclidine Scrn Presumptive negative Ur Amphetamines Screen Presumptive negative U Benzodiazepines Scrn Presumptive negative Urine Cocaine Screen Presumptive negative U Marijuana (THC) Screen Presumptive negative Drugs of Abuse Note Disclamer - Radiology Data Radiology results: report reviewed, image reviewed CT ABDOMEN AND PELVIS WITH CONTRAST INDICATION: L.L.Q. abd / LEFT flank pain with nausea and vomiting. TECHNIQUE: Axial CT images were obtained through the abdomen and pelvis after 100 cc IV contrast. All CT scans at this location are performed using CT dose reduction for ALARA by means of automated exposure control. COMPARISON: None available. FINDINGS: LOWER CHEST: No significant abnormality. LIVER: No significant abnormality. GALLBLADDER: No significant abnormality. BILE DUCTS: No significant abnormality. PANCREAS: No significant abnormality. SPLEEN: No significant abnormality. ADRENALS: No significant abnormality. RIGHT KIDNEY and URETER: No significant abnormality. LEFT KIDNEY and URETER: No significant abnormality. STOMACH and SMALL BOWEL: No significant abnormality. COLON: No significant abnormality. APPENDIX: No significant abnormality. PERITONEUM: No free fluid. No free air. No fluid collection. LYMPH NODES: No significant adenopathy. AORTA and ARTERIES: No significant abnormality. IVC and VEINS: No significant abnormality. URINARY BLADDER: No significant abnormality. REPRODUCTIVE ORGANS: Tubular cystic structure along the left border of uterus likely represents hydrosalpinx measuring 2 cm in transverse diameter. ADDITIONAL FINDINGS: None. SKELETAL SYSTEM: No significant abnormality. IMPRESSION: 1. Probable left hydrosalpinx. 2. Otherwise negative CT abdomen and pelvis Signer Name: Dominic Bush MD Signed: 01/20/2021 11:55 PM Workstation Name: [id number] Critical care attestation.: If time is entered above; I have spent that time in minutes in the direct care of this critically ill patient, excluding procedure time. ED Disposition Clinical Impression: Left flank pain, Anemia Disposition: 01 HOME / SELF CARE / HOMELESS Is pt being admited?: No Does the pt Need Aspirin: No Condition: Good Instructions: Abdominal Pain (ED), Flank Pain, Adult, [id number] Additional Instructions: Please take the iron sulfate medication twice daily as directed. Use the sennosides as directed to assist with constipation. Take the prescribed pain medications as needed and directed. Use Zofran as needed for nausea and vomiting, and Phenergan suppository as needed for intractable nausea and vomiting. Please follow-up with an outpatient [facility] doctor within the next [address] scan of the abdomen pelvis suggested left hydrosalpinx (swollen fallopian tube.) Based off of the history and physical, as well as imaging findings, we do not believe that this is infected. This should be followed up by a back order clerk. Please follow-up with an outpatient primary care doctor for chronic anemia. Please return to the emergency room right away with new pain, worsened pain, migration of pain, projectile vomiting, change in mental status, confusion, inability tolerate liquid feeds, new, worsened or different symptoms not present on the initial emergency room evaluation. Referrals: [facility] [Provider Group] - 3-5 Days [facility]/EMERGENCY TECHNICIAN, [facility] [Provider Group] - 3-5 Days [facility] [Provider Group] - 3-5 Days Forms: Work/School Release Form(ED)
[2021-01-20 23:22] LABS: Basophils % (Auto) 0.3 % (0.0-1.8); Eosinophils # (Auto) 0.1 K/mm3 (0.0-0.4); Eosinophils % (Auto) 1.1 % (0.0-4.3); Hematocrit 25.7 % (30.3-42.9); Hemoglobin 8.2 gm/dl (10.1-14.3); Lymphocytes # (Auto) 2.1 K/mm3 (1.2-5.4); Lymphocytes % (Auto) 35.3 % (13.4-35.0); Mean Corpuscular HGB Conc 32 % (30-34); Mean Corpuscular Volume 71 fl (79-97); Monocytes # (Auto) 0.3 K/mm3 (0.0-0.8); Monocytes % (Auto) 4.7 % (0.0-7.3); Platelet Count 374 K/mm3 (140-440); Red Blood Count 3.62 M/mm3 (3.65-5.03)
[2021-01-20 23:25] LABS: Red Cell Distribution Width 23.7 % (13.2-15.2)
[2021-01-20 23:29] LABS: Alanine Aminotransferase 7 units/L (7-56); Albumin 4.1 g/dL (3.9-5); Blood Urea Nitrogen 8 mg/dL (7-17); Calcium 9.1 mg/dL (8.4-10.2); Hemolysis Index 0
[2021-01-20 23:31] LABS: BUN/Creatinine Ratio 13
[2021-01-20 23:46] LABS: Bilirubin,Urine NEG (Negative); Blood,Urine NEG (Negative); Color,Urine Yellow (Yellow); Mucus,Urine FEW /HPF; Urobilinogen,Urine < 2.0 mg/dL (<2.0)
[2021-01-20 23:54] LABS: Amphetamine Screen,Urine PRESUMPTIVE NEGATIVE; Benzodiazepines Screen,Urine PRESUMPTIVE NEGATIVE; Cannabinoid Screen,Urine PRESUMPTIVE NEGATIVE; Cocaine Screen,Urine PRESUMPTIVE NEGATIVE; Methadone Screen,Urine PRESUMPTIVE NEGATIVE; Opiate Screen,Urine PRESUMPTIVE NEGATIVE
--- NOTE | 2021-01-21 00:59 | Cat Scan Report ---
CT ABDOMEN AND PELVIS WITH CONTRAST INDICATION: L.L.Q. abd / LEFT flank pain with nausea and vomiting. TECHNIQUE: Axial CT images were obtained through the abdomen and pelvis after 100 cc IV contrast. All CT scans at this location are performed using CT dose reduction for ALARA by means of automated exposure contr ol. COMPARISON: None available. FINDINGS: LOWER CHEST: No significant abnormality. LIVER: No significant abnormality. GALLBLADDER: No significant abnormality. BILE DUCTS: No significant abnormality. PANCREAS: No significant abnormality. SPLEEN: No significant abnormality. ADRENALS: No significant abnormality. RIGHT KIDNEY and URETER: No significant abnormality. LEFT KIDNEY and URETER: No significant abnormality. STOMACH and SMALL BOWEL: No significant abnormality. COLON: No significant abnormality. APPENDIX: No significant abnormality. PERITONEUM: No free fluid. No free air. No fluid collection. LYMPH NODES: No significant adenopathy. AORTA and ARTERIES: No significant abnormality. IVC and VEINS: No significant abnormality. URINARY BLADDER: No significant abnormality. REPRODUCTIVE ORGANS: Tubular cystic structure along the left border of uterus likely represents hydro salpinx measuring 2 cm in transverse diameter. ADDITIONAL FINDINGS: None. SKELETAL SYSTEM: No significant abnormality. IMPRESSION: 1. Probable left hydrosalpinx. 2. Otherwise negative CT abdomen and pelvis Signer Name: Dominic Bush MD Signed: 01/21/2021 12:55 AM Workstation Name: [id number]
[2021-01-21] MEDS ORDERED: KETOROLAC 30 MG/1 ML INJ IV ONE (01:19)
== END 2021-01-21 02:00 | disposition home or self-care (01) ==
LOC: ED 21:47
DX: R10.32 Left lower quadrant pain (principal); D64.9 Anemia, unspecified
CPT/HCPCS: 36415; 74177; 80053; 80307; 81001; 83690; 84703; 85025; 96361; 96374; 96375; 99285; J1170; J1885; J2765; J7120; Q9967

== ENCOUNTER 2021-10-03 09:53 | Emergency (ER) | payer OTHER ==
[2021-10-03 11:33] LABS: Red Blood Count 3.78 M/mm3 (3.65-5.03)
[2021-10-03 11:34] LABS: Hematocrit 24.2 % (30.3-42.9); Hemoglobin 6.6 gm/dl (10.1-14.3); Mean Corpuscular HGB Conc 27 % (30-34); Mean Corpuscular Volume 64 fl (79-97); Platelet Count 165 K/mm3 (140-440); Red Cell Distribution Width 18.8 % (13.2-15.2)
[2021-10-03 11:38] LABS: Alanine Aminotransferase 6 units/L (7-56); Albumin 4.5 g/dL (3.9-5); Blood Urea Nitrogen 6 mg/dL (7-17); Calcium 9.5 mg/dL (8.4-10.2); Hemolysis Index 0
[2021-10-03 11:43] LABS: BUN/Creatinine Ratio 9
[2021-10-03 12:11] LABS: Total Cells Counted 100
[2021-10-03 12:13] LABS: Anisocytosis 2+; Hypochromasia 3+; Poikilocytosis 1+
[2021-10-03 12:14] LABS: Large Platelets Rare; Ovalocytes Rare; Platelet Estimate Consistent w Auto; Stomatocytes Few; Target Cells Rare
== END 2021-10-04 23:44 | disposition left against medical advice (07) ==
LOC: ED 09:53
DX: T80.92XA Unspecified transfusion reaction, initial encounter (principal); Z53.21 Procedure and treatment not carried out due to patient leaving prior to being seen by health care provider; X58.XXXA Exposure to other specified factors, initial encounter
CPT/HCPCS: 36415; 80053; 85007; 85025; 86850; 86900; 86901